=== PATIENT | male | born 1945 | race Caucasian/White ===

== ENCOUNTER 2021-02-15 08:45 | Day surgery (SDC) | payer MEDICARE ==
[~2021-02-15 08:45] MED LIST: Metoclopramide 10 MG/2 ML SDV IV PRN; Sodium Chloride 0.9% 1,000 ML IV SCH
[2021-02-15] MEDS ORDERED: Propofol 1,000 MG/100 ML SDV ONE (11:40)
[2021-02-15] MEDS ORDERED: Glycopyrrolate 0.2 MG/ML 2 ML SDV ONE (11:40)
--- NOTE | 2021-02-15 12:44 | OR ---
DATE OF OPERATION: 02/15/2021 SURGEON: Orville Taylor MD PREOPERATIVE DIAGNOSES: History of Seth's and personal history of colorectal polyps. POSTOPERATIVE DIAGNOSES: History of Seth's and personal history of colorectal polyps. PROCEDURE: EGD with biopsy and colonoscopy. ANESTHESIA: MAC. ESTIMATED BLOOD LOSS: Minimal. COMPLICATIONS: None. INDICATION FOR THE PROCEDURE: The patient is a 75-year-old male with history of Seth's on EGD, starting 6 years ago. He did have another EGD about 3 years ago, here today for 3- year surveillance. Denies any significant GERD or reflux, also here for colonoscopy. Last colonoscopy was about 6 years ago, did have polyps on that one. Otherwise, denies any change in bowel habits since that time. Also has family history of colon cancer with his father diagnosed in his 70s. DESCRIPTION OF PROCEDURE: Informed consent was obtained from the patient. The patient was taken to the operating room, placed on table in left lateral decubitus position. Monitored anesthesia care was administered. Esophagogastroscope was then advanced through the mouth, directed towards the duodenum. Duodenum was reached and was normal and gastric antrum was normal. Retroflexion performed and the cardia was normal. Scope was then withdrawn into the esophagus, did have some salmon-colored mucosa at the GE junction. This was biopsied in 4 quadrants with cold forceps and sent to pathology. Blood loss was minimal. The scope was then withdrawn. Then turned our attention to the colonoscope. Digital rectal exam was performed, it was normal. Colonoscope was then advanced through the anus, directed towards the cecum. Cecum was reached and identified by appendiceal orifice and ileocecal valve. He did have a few small diverticula noted in the descending and sigmoid colon. Otherwise, no polyps, no masses, no areas of ischemia, inflammation were identified. Rectum was also otherwise unremarkable. Colonoscope was then withdrawn. 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 Colon was otherwise normal with a few small diverticula. RECOMMENDATIONS: We would recommend repeat surveillance EGD in 3 years. We will also follow up on biopsies. Would recommend repeat surveillance colonoscopy in 5 years. Otherwise, would recommend high-fiber diet and plenty of water for the diverticula. FABRICIO/VIPIN /[id number]
[2021-02-15 12:49] VITALS: BP 142/101; PULSE 90
== END 2021-02-15 12:50 | disposition home or self-care (01) ==
LOC: LB.SDS 08:45
PROVIDERS: ATTEND Surgery
DX: Z12.11 Encounter for screening for malignant neoplasm of colon (principal); K57.30 Diverticulosis of large intestine without perforation or abscess without bleeding; K22.70 Barrett's esophagus without dysplasia; E11.9 Type 2 diabetes mellitus without complications; K21.9 Gastro-esophageal reflux disease without esophagitis; Z80.0 Family history of malignant neoplasm of digestive organs; Z86.010 Personal history of colon polyps; Z87.19 Personal history of other diseases of the digestive system; Z88.8 Allergy status to other drugs, medicaments and biological substances; Z88.5 Allergy status to narcotic agent; Z79.899 Other long term (current) drug therapy; Z79.82 Long term (current) use of aspirin
CPT/HCPCS: 82947; J2704; J3490; J7030

== ENCOUNTER 2024-02-01 11:43 | Emergency (ER) | payer MEDICARE ==
[2024-02-01] MEDS: Aspirin 81 MG Tab.Chew PO ONE (12:06)
[2024-02-01] MEDS: Nitroglycerin 0.4 MG Tab.SL SL PRN (12:06)
[2024-02-01] MEDS ORDERED: Sodium Chloride 0.9% 10 ML Syringe FLUSH PRN (12:10)
[2024-02-01] MEDS: Morphine 2 MG/ML SYRINGE IVPUSH PRN (12:21)
[2024-02-01 12:26] LABS: BASOPHILS ABSOLUTE AUTO 0.04 K/uL (0.02-0.10); BASOPHILS PERCENT AUTO 0.5 % (0.0-0.5); EOSINOPHILS ABSOLUTE AUTO 0.06 K/uL (0.04-0.40); EOSINOPHILS PERCENT AUTO 0.8 % (1.0-5.0); HEMOGLOBIN 16.7 g/dL (13.0-18.0); LYMPHOCYTES ABSOLUTE AUTO 2.48 K/uL (1.50-4.00); LYMPHOCYTES PERCENT AUTO 32.5 % (20.0-40.0); MEAN CORPUSCULAR HGB CONC 34.1 g/dL (31.0-35.0); MEAN CORPUSCULAR VOLUME 100 fL (76-96); MEAN PLATELET VOLUME 9.5 fL (6.0-10.0); MONOCYTES ABSOLUTE AUTO 1.11 K/uL (0.20-0.80); MONOCYTES PERCENT AUTO 14.5 % (3.0-10.0); NEUTROPHILS ABSOLUTE AUTO 3.95 K/uL (2.00-7.50); NEUTROPHILS PERCENT AUTO 51.7 % (45.0-70.0); PLATELET COUNT,PLT 352 K/uL (150-400); RED BLOOD CELL COUNT 4.91 M/uL (4.50-6.50); WHITE BLOOD CELL COUNT,WBC 7.6 K/uL (4.0-11.0)
[2024-02-01 12:53] LABS: A/G RATIO 1.2 (0.8-2.0); ALBUMIN 3.8 g/dL (3.4-5.0); ANION GAP 12.5 mmol/L (5.0-15.0); BILIRUBIN TOTAL 0.6 mg/dL (0.0-1.0); BUN/CREATININE RATIO 17.5 (6-25); CALCIUM 9.6 mg/dL (8.5-10.1); CARBON DIOXIDE,CO2 29.7 mmol/L (21.0-32.0); CREATININE 0.97 mg/dL (0.70-1.30); EST CRCL DRUG DOSING (CG) 63.78 mL/min; POTASSIUM,K 4.2 mmol/L (3.5-5.1); PROTEIN TOTAL,TP 7.1 g/dL (6.4-8.2)
[2024-02-01 12:57] LABS: TROPONIN I HIGH SENSITIVITY 359.5 pg/ml (<=60.4)
[2024-02-01 13:04] LABS: PROTHROMBIN TIME 10.4 sec (9.0-11.5)
[2024-02-01] MEDS: Heparin Sodium 5,000 Units/ML Vial IVPUSH ONE (13:09)
[2024-02-01] MEDS: Heparin Sodium/D5W 25,000 UNITS/500 ML BAG IV SCH (13:16)
[2024-02-01] MEDS: Morphine 4 MG/ML VIAL ONE (15:21)
[2024-02-01 15:27] VITALS: BP 160/91; PULSE 80
== END 2024-02-01 15:15 ==
LOC: LB.ED 11:43
DX: I20.89 Other forms of angina pectoris (principal); K21.9 Gastro-esophageal reflux disease without esophagitis; Z79.899 Other long term (current) drug therapy; Z88.5 Allergy status to narcotic agent; Z88.8 Allergy status to other drugs, medicaments and biological substances; Z88.6 Allergy status to analgesic agent
CPT/HCPCS: 36415; 71045; 80053; 83735; 83880; 84484; 85025; 85610; 93005; 93010; 96365; 96366; 96375; 99284; 99285-25; A9270-GY; J1644; J2270

== ENCOUNTER 2024-08-04 08:56 | Emergency (ER) | payer MEDICARE ==
[2024-08-04] MEDS: Ketorolac 15 MG/ML SDV IVPUSH ONE (09:43)
[2024-08-04] MEDS: Orphenadrine 60 MG/2 ML Inj IV ONE (09:46)
[2024-08-04] MEDS: methylPREDNISolone Sodium Succinate 40 MG/1 ML SDV IVPUSH ONE (11:41)
[2024-08-04] MEDS: diazePAM 5 MG/ML MDV ONE (11:44)
[2024-08-04 13:21] VITALS: BP 119/77; PULSE 58
== END 2024-08-04 12:46 | disposition home or self-care (01) ==
LOC: LB.ED 08:56
DX: M54.12 Radiculopathy, cervical region (principal); Z88.5 Allergy status to narcotic agent; Z88.8 Allergy status to other drugs, medicaments and biological substances; Z79.899 Other long term (current) drug therapy; Z95.0 Presence of cardiac pacemaker
CPT/HCPCS: 72040; 96374; 96375; 99283; J1885; J2360; J2919; J3360

== ENCOUNTER 2024-08-16 06:48 | Emergency (ER) | payer MEDICARE ==
[2024-08-16] MEDS: methylPREDNISolone Sodium Succinate 40 MG/1 ML SDV IM ONE (07:45)
[2024-08-16] MEDS: Ketorolac 15 MG/ML SDV IM ONE (07:46)
[2024-08-16] MEDS: diazePAM 10 MG Tab PO ONE (08:09)
[2024-08-16] MEDS: Orphenadrine 60 MG/2 ML Inj IM ONE (08:41)
[2024-08-16 10:17] VITALS: BP 135/79; PULSE 74
== END 2024-08-16 10:55 | disposition home or self-care (01) ==
LOC: LB.ED 06:48
DX: M54.12 Radiculopathy, cervical region (principal); I10 Essential (primary) hypertension; I25.10 Atherosclerotic heart disease of native coronary artery without angina pectoris; J45.909 Unspecified asthma, uncomplicated; E66.9 Obesity, unspecified; E11.9 Type 2 diabetes mellitus without complications; Z88.5 Allergy status to narcotic agent; Z88.8 Allergy status to other drugs, medicaments and biological substances; Z79.82 Long term (current) use of aspirin; Z79.899 Other long term (current) drug therapy; Z86.16 Personal history of COVID-19; Z90.49 Acquired absence of other specified parts of digestive tract; Z87.891 Personal history of nicotine dependence; Z68.33 Body mass index [BMI] 33.0-33.9, adult
CPT/HCPCS: 93005; 96372; 99283; A9270-GY; J1885; J2360; J2919